=== PATIENT | male | born 1955 | race Caucasian/White ===

== ENCOUNTER 2017-05-19 08:55 | Inpatient (IN) ==
[2017-05-18 16:20] LABS: Blood Urea Nitrogen 24 mg/dl (8-23)
[2017-05-18 16:29] LABS: Basophils # (Auto) 0 K/mcL (0.0-0.3); Basophils % (Auto) 0.2 % (0.0-2.0); Eosinophils # (Auto) 0.1 K/mcL (0.0-0.7); Eosinophils % (Auto) 0.5 % (0.0-7.0); Granulocytes % (Auto) 83.5 % (38.0-78.0); Lymphocytes # (Auto) 1.8 K/mcL (1.5-4.8); Lymphocytes % (Auto) 10.9 % (15.5-49.0); Mean Cell Volume 100.2 fL (80.0-100.0); Mean Corpuscular HGB Conc 32.8 g/dL (31.0-36.0); Mean Corpuscular Hemoglobin 32.9 pg (26.0-34.0); Monocytes # (Auto) 0.8 K/mcL (0.1-0.9); Monocytes % (Auto) 4.9 % (1.0-12.0); Platelet Count 608 K/mcL (140-440); RBC 3.84 M/mcL (4.50-5.90); Red Cell Distribution Width 13.1 % (11.5-14.5)
[2017-05-18 19:30] LABS: Appearance,Urine CLEAR; Bilirubin,Urine NEG (NEG); Color,Urine YELLOW; Glucose,Urine (UA) NEGATIVE (NEG); Leukocyte Esterase,Urine NEG /uL (NEG); Nitrate,Urine NEG (NEG); Protein,Urine NEG (NEG); Urine Blood NEG mg/dL (<0.03); Urobilinogen,Urine NEG (NEG)
[~2017-05-19 08:55] MED LIST: CELECOXIB 200 MG CAPSULE PO ONE; PREGABALIN 75 MG CAPSULE PO SCH; ceFAZolin 1 GM VIAL IV SCH; oxyCODONE 10 MG TAB.ER.12H PO SCH
[2017-05-19] MEDS ORDERED: MIDAZOLAM 5 MG/5 ML VIAL IV ONE (11:15)
[2017-05-19] MEDS ORDERED: ONDANSETRON 4 MG/2 ML VIAL IV ONE (11:15)
[2017-05-19] MEDS ORDERED: GLYCOPYRROLATE 0.2 MG/ML VIAL IV ONE (11:15)
[2017-05-19] MEDS ORDERED: LIDOCAINE HCL/PF 100 MG/5 ML SYRINGE IV ONE (11:15)
[2017-05-19] MEDS ORDERED: DEXAMETHASONE 10 MG/ML VIAL IV ONE (11:15)
[2017-05-19] MEDS ORDERED: SUCCINYLCHOLINE 20 MG/ML ML IV ONE (11:15)
[2017-05-19] MEDS ORDERED: PROPOFOL 200 MG/20 ML VIAL IV ONE (11:15)
[2017-05-19] MEDS ORDERED: PHENYLEPHRINE 10 MG/ML VIAL IV ONE (11:15)
[2017-05-19] MEDS ORDERED: KETAMINE 100 MG/ML ML IV ONE (11:15)
[2017-05-19] MEDS ORDERED: fentaNYL 250 MCG/5 ML VIAL IV ONE (11:15)
[2017-05-19] MEDS ORDERED: METHOCARBAMOL 1,000 MG/10 ML VIAL IV PRN (12:10)
[2017-05-19] MEDS ORDERED: ONDANSETRON 4 MG/2 ML VIAL IV PRN ×2 (12:10→13:17)
[2017-05-19] MEDS ORDERED: NALOXONE HCL 0.4 MG/ML VIAL IV PRN (12:10)
[2017-05-19] MEDS ORDERED: BENZOCAINE/MENTHOL 1 LOZENGE PO PRN ×2 (12:10→13:17)
[2017-05-19] MEDS ORDERED: MEPERIDINE 25 MG/ML SYRINGE IV PRN (12:10)
[2017-05-19] MEDS ORDERED: ACETAMINOPHEN 1,000 MG/100 ML BOTTLE IV ONE (12:10)
[2017-05-19] MEDS ORDERED: LACTATED RINGERS 250 ML IV PRN (12:10)
[2017-05-19] MEDS ORDERED: FLUMAZENIL 0.1 MG/ML ML IV PRN (12:10)
[2017-05-19] MEDS ORDERED: IPRATROPIUM/ALBUTEROL 3 ML AMPUL.NEB NEB PRN (12:10)
[2017-05-19] MEDS ORDERED: LACTATED RINGERS 1,000 ML IV SCH (12:15)
--- NOTE | 2017-05-19 13:16 | Brief Operative Note ---
Date of procedure: 05/19/17 Pre-op diagnosis: R failed ORIF proximal humerus 4 part fracture Post-op diagnosis: same Procedure: 1)Removal of hardware, deep plate and screws 2)Right reverse total shoulder arthroplasty Grafts/Implants: Yes (Yrn reunion 4 fx stem, 36 +2 lat glenosphere, std cup and insert) Anesthesia: GETA Findings: failed ORIF Complications: none Surgeon: Beny Boothe Entry Level Truck Driver: Delfino Velasquez Estimated blood loss (cc): 350 Specimens Removed/Pathology: none sent Condition: stable Disposition: PACU
[2017-05-19] MEDS ORDERED: POLYETHYLENE GLYCOL 3350 17 GM PACKET PO PRN (13:17)
[2017-05-19] MEDS ORDERED: BISACODYL 10 MG SUPP.RECT PR PRN (13:17)
[2017-05-19] MEDS ORDERED: TRANEXAMIC ACID 1,000 MG/10 ML VIAL IV SCH (13:17)
[2017-05-19] MEDS ORDERED: FLEETS ADULT ENEMA PR PRN (13:17)
[2017-05-19] MEDS ORDERED: HYDROmorphone 2 MG/ML SYRINGE IV PRN (13:17)
[2017-05-19] MEDS ORDERED: MAGNESIUM HYDROXIDE 30 ML ORAL.SUSP PO PRN (13:17)
[2017-05-19] MEDS ORDERED: ALOE VERA INTRANASAL PRN (13:25)
[2017-05-19] MEDS ORDERED: SODIUM CHLORIDE INTRANASAL PRN (13:25)
[2017-05-19] MEDS ORDERED: [UNRECOGNIZED DRUG - OTHER] INTRANASAL PRN (13:25)
[2017-05-19] MEDS ORDERED: BUPIVACAINE W/EPI 0.5% 50 ML VIAL IJ ONE (13:29)
[2017-05-19] MEDS: fentaNYL 100 MCG/2 ML VIAL IV PRN ×4 (13:40→14:10)
--- NOTE | 2017-05-19 14:45 | Operative Note ---
DATE OF OPERATION: 05/19/2017 PREOPERATIVE DIAGNOSIS: Failed open reduction and internal fixation of right proximal humerus four-part fracture. POSTOPERATIVE DIAGNOSIS: Failed open reduction and internal fixation of right proximal humerus four-part fracture. PROCEDURE PERFORMED: 1. Hardware removal, deep, from right shoulder. 2. Right reverse total shoulder arthroplasty using a Sturgeon ReUnion size 14 fracture stem, a 36 mm +2 lateralized glenosphere with a standard cup and insert. SURGEON: Beny Boothe M.D. SODA MAKER: Adan Velasquez PA-C. ANESTHESIA: General. DRAINS: None. SPECIMENS: Bone fragments which were discarded. BLOOD LOSS: 350 mL. COMPLICATIONS: None. POSTOPERATIVE CONDITION: Stable. INDICATIONS FOR SURGERY: This is a 61-year-old male who approximately two weeks ago underwent open treatment and internal fixation of a four-part proximal humerus fracture. Initial postop film showed good fracture alignment and position. However, at his 2-week followup appointment x-rays were taken which showed complete displacement and loss of fixation. FINDINGS AT SURGERY: There was complete loss of fixation with multiple fragments. Post implantation showed satisfactory stability and range of motion of the shoulder. PROCEDURE IN DETAIL: The patient had been seen preoperatively and informed consent had been obtained after discussion of risks and benefits of surgery. Risks including, but not limited to, bleeding; infection; injury to nerves, blood vessels, and other surrounding structures; anesthetic risks; continued pain; stiffness; dislocation; fracture; possibility of needing further revision surgery. He understood these risks and wished to proceed. Correct operative site was marked and then patient was taken to the operating room and general anesthesia induced. He was carefully positioned in the beach chair position and pressure points carefully padded. Right shoulder and upper extremity were carefully prepped and draped in normal sterile fashion, and a time-out was performed verifying patient name, operative site, and plan. Ioban was used to cover all skin surfaces and then his prior incision was used with a scalpel through skin and subcutaneous tissue cutting through prior sutures. We then identified our Vicryl stitch closing the deltopectoral muscle and cut the ends on either end and pulled this out. I then used blunt finger dissection to dissect into the subdeltoid space, and then we exposed his previous plate and screws. We used a screwdriver to remove all of the screws and pegs and then the plate was removed. We identified the lesser tuberosity fragment and placed a cerclage traction stitch with a #2 FiberWire. We then removed humeral head fragments. There were two of them. We then exposed the glenoid, removing labrum circumferentially. We then used the drill guide for the Sturgeon reverse, placing this along the inferior aspect of the glenoid with the guide pin angled up about 10 degrees. We then reamed until we had cancellous bone on the inferior half and had just contacted bone superior half. We then measured our central hole which was 25 and we opened a baseplate, and while holding pressure against the glenoid, advanced the screw until it locked. We then drilled and placed four locking screws peripherally and then chose a 36, +2 offset glenosphere. This was impacted. We then exposed our humeral shaft. We began reaming until a size 14. We then trialed with a 14 and positioned this so we could just barely reduce with the standard insert. We then went ahead and removed trial implants. A 14 fracture stem was opened. We prepared the canal with brush and then a cement restrictor. Cement was mixed and the stem was cemented, avoiding the proximal porous coating. This was placed in 30 degrees of retroversion. Once cement had fully hardened, we then re-reduced with the trial head and liked our tension. So we went ahead and opened the standard baseplate and poly. We then passed FiberWire suture through the medial holes of the implant and passed one end posterior to the implant and reduced the shoulder joint. We then found the remnants of the greater tuberosity and passed the sutures around that. We then passed one of these through the anterior fin and then around the lesser tuberosity fragment. We also passed one limb of the traction stitch through the anterior fin and through the greater tuberosity fragment and then tied that down along with tying our two cerclage sutures around the greater tuberosity. This brought both tuberosities around on the humerus nicely and appeared to have good stable fixation. We then did a final Irrisept irrigation. Also of note, we did irrigate Irrisept prior to implantation of our baseplate and the humeral stem. We then irrigated with saline copiously and then a running #1 Vicryl was used to close the deltopectoral interval. During our closure, we punctured the cephalic vein, so I did wrap the remaining suture around the cephalic vein to ligate. We then did a final Irrisept irrigation, and then 2-0 Monocryl used for subcutaneous and aryan for skin. Xeroform and sterile dressing were applied. Arm was placed in a sling. The patient was then awakened, extubated, and transferred to recovery in stable condition. BJJess:arya Job ID: [id number] Doc ID: [id number] Beny Boothe MD
[2017-05-19] MEDS: 0.9 % SODIUM CHLORIDE 1,000 ML IV SCH ×2 (14:55→22:25)
[2017-05-19] MEDS: KETOROLAC 30 MG/ML VIAL IV PRN ×2 (14:57→21:36)
[2017-05-19] MEDS ORDERED: ACYCLOVIR 400 MG TABLET PO PRN (15:00)
[2017-05-19] MEDS: 0.9 % SODIUM CHLORIDE 10 ML SYRINGE IV SCH ×2 (15:47→22:25)
--- NOTE | 2017-05-19 17:35 | XRay Report ---
CLINICAL INFORMATION: Post-OP Total Shoulder COMPARISON: None. FINDINGS: Total shoulder prostheses is anatomically aligned. No osseous abnormality. Periarticular gas and soft tissue swelling seen as expected IMPRESSION: Negative Interpreted and Authenticated by: Hayder Valles 05/19/17
[2017-05-19] MEDS: HYDROcodone/APAP 10/325MG TABLET PO PRN ×2 (17:37→21:40)
[2017-05-19] MEDS: ceFAZolin 1 GM VIAL IV SCH (18:58)
[2017-05-19] MEDS ORDERED: SENNOSIDES 1 TABLET PO SCH (21:00)
[2017-05-19] MEDS ORDERED: ZOLPIDEM 5 MG TABLET PO PRN (21:00)
[2017-05-19] MEDS ORDERED: METOPROLOL SUCCINATE 50 MG TAB.XL.24H PO SCH (21:00)
[2017-05-19] MEDS ORDERED: rOPINIRole 0.25 MG TABLET PO SCH (21:00)
[2017-05-19] MEDS ORDERED: GABAPENTIN 300 MG CAPSULE PO SCH (21:00)
[2017-05-19] MEDS: DOCUSATE SODIUM 100 MG CAPSULE PO SCH (21:37)
[2017-05-20] MEDS: KETOROLAC 30 MG/ML VIAL IV PRN (03:08)
[2017-05-20] MEDS: ceFAZolin 1 GM VIAL IV SCH (03:09)
[2017-05-20] MEDS: 0.9 % SODIUM CHLORIDE 10 ML SYRINGE IV SCH ×2 (03:09→06:10)
[2017-05-20] MEDS: HYDROcodone/APAP 10/325MG TABLET PO PRN ×3 (03:09→12:24)
[2017-05-20] MEDS: 0.9 % SODIUM CHLORIDE 1,000 ML IV SCH (06:10)
--- NOTE | 2017-05-20 06:52 | Discharge Summary ---
Providers - Providers Patient information: Note initiated : 05/20/17 at 6:50 am Service Date, if different from initiated Date: [] Patient: Jaswinder Mireles 61 y/o M admitted on 05/19/17 for Right Reverse Total Shoulder Arthroplasty. Chief Complaint: [] Discharge date: 05/20/17 Hospitalization Hospital course: Pt was admitted for R reverse totl shoulder arthroplasty due to a failed ORIF of a 4-part proximal humerus fx. Pt was admitted on the day of procedure, he was then transferred to the floor for IV pain meds, abx, and PT. He will f/u at [facility] in 2 weeks for a recheck. Discharge diagnosis: L Shoulder proximal humerus fx with failed ORIF Exam - Exam Clean and dry: Yes Weight bearing status: none Ortho Discharge - TSA - Patient Instructions Diet: Regular Diet Activity: non weight bearing Total Shoulder Protocol: Leave immobilizer in place except for bathing and ROM. Abduction pillow. Continue to wear sling until seen by physician. Codman Pendulum : These exercises use momentum produced by your body to move your shoulder joint. Bend your knees and shift your weight to your front leg, then back, allowing your arm to swing in the same directions. Using the same technique, alternately shift your weight between your right and left legs, allowing your arm to swing from side to side. These exercises are also performed in counterclockwise and clockwise circular motions. Typically these exercises are performed several times per day, for a set number repetitions or minutes, such as 20 times in a row or 5 minutes at a time. Dressing Care: May shower in 2 days - Follow Up Plan Disposition: Home, Self-Care Prognosis: Good Rehab Potential: Good Overall status at discharge: patient is progressing back to baseline Pending Studies Resuscitation Status Full Code Diet Consistent Carbohydrate Diet Start ThuMay 19 1323 Hydrocodone Bitart/Acetaminophen ([place] 10/325mg) 0 tab PO Q4HP PRN PRN Reason: PAIN LEVEL 3-6 Last Admin: 05/20/17 03:09 Dose: 2 tab Admin: 05/19/17 21:40 Dose: 2 tab Admin: 05/19/17 17:37 Dose: 2 tab Docusate Sodium (Colace) 100 mg PO BID ABHILASH Last Admin: 05/19/17 21:37 Dose: 100 mg Gabapentin (Neurontin) 300 mg PO HS ABHILASH Last Admin: 05/19/17 21:37 Dose: 300 mg Hydromorphone HCl (Dilaudid) 0 mg IV Q2HP PRN PRN Reason: PAIN LEVEL > 6 Last Admin: 05/19/17 16:10 Dose: 2 mg Sodium Chloride (Sodium Chloride 0.9%) 1,000 mls @ 125 mls/hr IV .Q8H [facility] Last Admin: 05/20/17 06:10 Dose: Admin: 05/19/17 22:25 Dose: 125 mls/hr Infusion: 05/19/17 22:25 Dose: 125 mls/hr Admin: 05/19/17 14:55 Dose: 125 mls/hr Ketorolac Tromethamine (Toradol) 30 mg IV Q6HP PRN PRN Reason: Pain Stop: 05/21/17 13:23 Last Admin: 05/20/17 03:08 Dose: 30 mg Admin: 05/19/17 21:36 Dose: 30 mg Admin: 05/19/17 14:57 Dose: 30 mg Metoprolol Succinate (Toprol Xl) 50 mg PO [facility] Last Admin: 05/19/17 21:37 Dose: 50 mg Ropinirole HCl (Requip) 1.25 mg PO [facility] Last Admin: 05/19/17 21:36 Dose: 1.25 mg Senna (Senokot) 2 tab PO [facility] Last Admin: 05/19/17 21:37 Dose: 2 tab Sodium Chloride (Saline Flush) 10 ml IV Q8 [facility] Last Admin: 05/20/17 06:10 Dose: Admin: 05/20/17 03:09 Dose: 10 ml Admin: 05/19/17 22:25 Dose: Not Given Admin: 05/19/17 15:47 Dose: Not Given Zolpidem Tartrate (Ambien) 10 mg PO [facility] PRN PRN Reason: Insomnia Last Admin: 05/19/17 22:25 Dose: 10 mg Shift Summary 05/20/17 03:39 Shift Summary by Barbara Araya voiding per urinal and BR, PVR minimal this AM, IV LH SL flushed and patent, last ABO given, medicated with toradol Q6H prn and hydrocodone 10/325mg 2 tabs x2, amb. in room and tolerated well, dsg CDI to rt. shoulder, sling to RUE instead of immobilizer, NWB to RUE, VSS, pt had RT. RTSA d/t failed ORIF previously done 2 weeks ago, pleasant and cooperative, should d/c home with today Initialized on 05/20/17 03:39 - END OF NOTE
[2017-05-20] MEDS ORDERED: PANTOPRAZOLE 40 MG TABLET PO SCH (07:30)
[2017-05-20] MEDS ORDERED: AMIODARONE HCL 200 MG TABLET PO SCH (08:00)
[2017-05-20] MEDS: DOCUSATE SODIUM 100 MG CAPSULE PO SCH (08:47)
[2017-05-20] MEDS ORDERED: FEXOFENADINE 180 MG TABLET PO PRN (09:00)
[2017-05-20] MEDS ORDERED: FUROSEMIDE 40 MG TABLET PO SCH (09:00)
[2017-05-20] MEDS ORDERED: CYANOCOBALAMIN 1,000 MCG/ML VIAL IM SCH (09:00)
[2017-05-20] MEDS ORDERED: METOPROLOL SUCCINATE 50 MG TAB.XL.24H PO SCH (09:00)
[2017-05-20] MEDS ORDERED: ESCITALOPRAM 20 MG TABLET PO SCH (09:00)
[2017-05-20] MEDS ORDERED: SPIRONOLACTONE 25 MG TABLET PO SCH (09:00)
[2017-05-20] MEDS ORDERED: DIGOXIN 125 MCG TABLET PO SCH (14:00)
[2017-05-21] MEDS ORDERED: AMIODARONE HCL 200 MG TABLET PO SCH (08:00)
== END 2017-05-20 12:45 | disposition home or self-care (01) | DRG 483 ==
LOC: MEDSUR 08:55
PROVIDERS: ADMIT Orthopaedic Surgery; ATTEND Orthopaedic Surgery